=== PATIENT | female | born 1970 | race Caucasian/White ===

== ENCOUNTER → 2019-10-31 | Outpatient (CLI) | payer OTHER | LOC: MC.RAD 10:42 | DX: Z12.31 Encounter for screening mammogram for malignant neoplasm of breast (principal) ==

== ENCOUNTER 2020-11-26 06:55 | Day surgery (SDC) | payer OTHER ==
[~2020-11-26] VITALS: Ht 154.9 cm; Wt 91.0 kg
[2020-11-26] VITALS (7 sets, daily range): BP systolic 123–131; BP diastolic 54–61; PULSE 80–87; TEMP 98
[2020-11-26] MEDS ORDERED: MOBIC15 MG PO (08:27)
[2020-11-26] MEDS ORDERED: KLONOPIN 0.5MG0.5 MG PO (08:27)
[2020-11-26] MEDS ORDERED: DYAZIDE 25 MG-31 CAP PO (08:28)
[2020-11-26] MEDS ORDERED: ULTRAM 50MG TAB50 MG PO (10:44)
--- NOTE | 2020-11-26 11:25 | NUR ---
Patient returns to room 6 per cart from PACU and is awake and alert. ON oxygen at 2L per nasal cannula at 2L and sats 97%. Exofin dressing on abdomen clean and dry. Temp 97.0. IV fluids infusing and site is free of redness. Siderails up x2 and call light in reach. Son in room. Allowed to rest.
--- NOTE | 2020-11-26 11:40 | NUR ---
Resting and offers no complaints of pain or nausea. Allowed to rest.
--- NOTE | 2020-11-26 11:55 | NUR ---
Continues to rest when not disturbed. IV fluids infusing.
--- NOTE | 2020-11-26 12:10 | NUR ---
Continues to rest without complaints of pain or nausea. IV fluids infusing and remains on oxygen while resting.
--- NOTE | 2020-11-26 12:25 | NUR ---
More awake and talking on phone. Oxygen removed. Taking ice water.
--- NOTE | 2020-11-26 12:55 | NUR ---
Medicated with [place] 5mg on tab for incisional pain. Eating toast and drinking water.
--- NOTE | 2020-11-26 13:29 | NUR ---
[place] effective for pain. Assisted up to the bathroom and gait is steady. Able to void and returns to room.
--- NOTE | 2020-11-26 13:55 | NUR ---
IV discontinued and site is free of redness. Patient is dressing self.
--- NOTE | 2020-11-26 14:01 | NUR ---
Dismissal instructions were given and patient voiced understanding of these. Instructed on pain medications and follow up appointment.
== END 2020-11-26 14:01 | disposition home or self-care (01) ==
LOC: SDCO 06:55
DX: K43.2 Incisional hernia without obstruction or gangrene (principal); E66.9 Obesity, unspecified; F41.9 Anxiety disorder, unspecified; F32.9 Major depressive disorder, single episode, unspecified; Z79.899 Other long term (current) drug therapy; Z20.822 Contact with and (suspected) exposure to COVID-19
CPT/HCPCS: C1781; J1100; J1885; J2405; J2704; J3010; J7120

== ENCOUNTER → 2021-08-02 | Outpatient (CLI) | payer OTHER ==
[~2021-08-02] MED LIST: DYAZIDE 25 MG-31 CAP PO; KLONOPIN 0.5MG0.5 MG PO; MOBIC15 MG PO; ULTRAM 50MG TAB50 MG PO
== END ==
LOC: MC.RAD 08:34
DX: Z12.31 Encounter for screening mammogram for malignant neoplasm of breast (principal)